=== PATIENT | male | born 1985 ===

== ENCOUNTER 2018-05-10 08:59 | Emergency (ER) | payer OTHER ==
[2018-05-10 09:06] VITALS: BMI 31.0
[2018-05-10 09:11] VITALS: BP 107/73; PULSE 118; RESP 22; TEMP 97.9; O2SAT 96
[2018-05-10] MEDS ORDERED: Oxycodone/Acetaminophen 5/325 mg Tab PO STA (10:22)
--- NOTE | 2018-05-10 10:23 | ED PDOC ---
HPI: Back Chief Complaint (Provider): Back Pain History Per: Patient Additional Complaint(s): 33 yo male, no PMH, presents to ED with c/o lower back pain x 1.5 weeks, progressively worst x3 days. admits to heavy lifting while at work. denies trauma/ injury. hx. reports has diff. ambulating. last advil was last night. No bowel or bladder dysfunction <Camryn Asif - Last Filed: 05/10/18 13:37> <Rafael Diaz III - Last Filed: 05/12/18 13:59> Time Seen by Provider: 05/10/18 09:58 Chief Complaint (Nursing): Back Pain Past Medical History Reviewed: Nursing Documentation, Vital Signs Vital Signs: Last Vital Signs Temp 97.9 F 05/10/18 09:10 Pulse 118 H 05/10/18 09:10 Resp 05/10/18 09:10 BP 107/73 05/10/18 09:10 Pulse Ox 96 05/10/18 09:10 - Medical History PMH: No Chronic Diseases - Surgical History Surgical History: No Surg Hx - Family History Family History: States: No Known Family Hx - Living Arrangements Living Arrangements: With Family - Social History Current smoker - smoking cessation education provided: No Alcohol: None Drugs: Denies <Camryn Asif - Last Filed: 05/10/18 13:37> Vital Signs: Last Vital Signs Temp 97.9 F 05/10/18 09:10 Pulse 118 H 05/10/18 09:10 Resp 05/10/18 09:10 BP 107/73 05/10/18 09:10 Pulse Ox 96 05/10/18 13:44 <Rafael Diaz III - Last Filed: 05/12/18 13:59> - Home Medications Home Medications: Ambulatory Orders Medication Instructions Recorded Cyclobenzaprine [Cyclobenzaprine 10 mg PO TID #20 tab 05/10/18 HCl] Ibuprofen [Motrin] 600 mg PO Q6 #20 tab 05/10/18 oxyCODONE/Acetaminophen [Percocet 1 ea PO Q6 PRN #5 tab 05/10/18 5/325 mg Tab] - Allergies Allergies/Adverse Reactions: Allergies Allergy/AdvReac Type Severity Reaction Status Date / Time No Known Allergies Allergy Verified 05/10/18 09:43 Supervising Attending Note - Attestation: I have reviewed all pertinent clinical information: Yes <Rafael Diaz III - Last Filed: 05/12/18 13:59> Review of Systems ROS Statement: Except As Marked, All Systems Reviewed And Found Negative Musculoskeletal: Positive for: Back Pain <Camryn Asif Last Filed: 05/10/18 13:37> Physical Exam - Reviewed Nursing Documentation Reviewed: Yes Vital Signs Reviewed: Yes - Physical Exam Appears: Positive for: Well, Non-toxic, No Acute Distress Head Exam: Positive for: ATRAUMATIC, NORMAL INSPECTION, NORMOCEPHALIC Skin: Positive for: Normal Color, Warm, DRY Eye Exam: Positive for: EOMI, Normal appearance, PERRL ENT: Positive for: Normal ENT Inspection Neck: Positive for: Normal, Painless ROM Cardiovascular/Chest: Positive for: Regular Rate, Rhythm Respiratory: Positive for: CNT, Normal Breath Sounds Gastrointestinal/Abdominal: Positive for: Normal Exam, Soft Back: Positive for: Normal Inspection Extremity: Positive for: Normal ROM Neurologic/Psych: Positive for: Alert, Oriented <Camryn Asif - Last Filed: 05/10/18 13:37> - ECG O2 Sat by Pulse Oximetry: 96 <Camryn Asif Last Filed: 05/10/18 13:37> Medical Decision Making Medical Decision Making: Pt medicated with Percocet, Motrin and Flexeril on re-eval, reports pain is greatly improved. stable for discharge at this time <Camryn Asif Last Filed: 05/10/18 13:37> Disposition - Patient ED Disposition Is Patient to be Admitted: No - Disposition Disposition: Routine/Home Disposition Time: 13:44 <Camryn Asif - Last Filed: 05/10/18 13:37> <Rafael Diaz III - Last Filed: 05/12/18 13:59> - Clinical Impression Clinical Impression: Back pain - Disposition Referrals: Doc Ramos MD [Primary Care Provider] - Condition: STABLE Prescriptions: Cyclobenzaprine [Cyclobenzaprine HCl] 10 mg PO TID #20 tab Ibuprofen [Motrin] 600 mg PO Q6 #20 tab oxyCODONE/Acetaminophen [Percocet 5/325 mg Tab] 1 ea PO Q6 PRN #5 tab PRN Reason: Pain, Severe (8-10) Instructions: Low Back Pain (DC) Forms: [employer] [facility] ([place]), [place] [facility] School/Work Excuse
== END 2018-05-10 13:35 | disposition home or self-care (01) ==
LOC: SUPCPDRO 08:59 → H.ER 08:59
DX: M54.5 Low back pain (principal)
CPT/HCPCS: 96372; 99283; J1885

== ENCOUNTER 2019-01-05 14:02 | Observation (INO) | payer MEDICAID, OTHER ==
[2019-01-05 14:05] VITALS: BMI 33.7
--- NOTE | 2019-01-05 16:55 | ED PDOC ---
HPI: General Adult Time Seen by Provider: 01/05/19 16:30 Chief Complaint (Nursing): Abnormal Labs Chief Complaint (Provider): Abnormal Labs History Per: Patient History/Exam Limitations: no limitations Onset/Duration Of Symptoms: Other (x1 week) Current Symptoms Are (Timing): Still Present Additional Complaint(s): Patient is a 33 y/o male advised by PCP to come to ED after blood work from one week ago showed acute anemia. Patient reports generalized weakness, fatigue, headache, and intermittent bloody stool. Patient denies abdominal pain, fever, vomiting, and diarrhea. PCP: Dr. Nithin Bagley Past Medical History Reviewed: Historical Data, Nursing Documentation, Vital Signs Vital Signs: Last Vital Signs Temp 98.3 F 01/05/19 14:05 Pulse 64 01/05/19 14:05 Resp 17 01/05/19 14:05 BP 154/82 H 01/05/19 14:05 Pulse Ox 100 01/05/19 14:05 Primary Care Provider: Nithin Bagley - Medical History PMH: No Chronic Diseases - Surgical History Other surgeries: knee - Family History Family History: States: No Known Family Hx - Home Medications Home Medications: Ambulatory Orders Medication Instructions Recorded No Known Home Med 01/05/19 - Allergies Allergies/Adverse Reactions: Allergies Allergy/AdvReac Type Severity Reaction Status Date / Time No Known Allergies Allergy Verified 01/05/19 16:02 Review of Systems ROS Statement: Except As Marked, All Systems Reviewed And Found Negative Constitutional: Positive for: Weakness (generalized), Other (fatigue). Negative for: Fever Gastrointestinal: Positive for: Hematochezia (intermittent). Negative for: Vomiting, Abdominal Pain, Diarrhea Neurological: Positive for: Headache Physical Exam - Reviewed Nursing Documentation Reviewed: Yes Vital Signs Reviewed: Yes - Physical Exam Appears: Positive for: No Acute Distress Head Exam: Positive for: ATRAUMATIC, NORMAL INSPECTION, NORMOCEPHALIC Skin: Positive for: Pallor (generalized) Eye Exam: Positive for: EOMI, Normal appearance, PERRL Neck: Positive for: Normal, Painless ROM, Supple Cardiovascular/Chest: Positive for: Regular Rate, Rhythm. Negative for: Murmur Respiratory: Positive for: Normal Breath Sounds. Negative for: Respiratory Distress Gastrointestinal/Abdominal: Positive for: Normal Exam, Soft. Negative for: Tenderness Back: Positive for: Normal Inspection. Negative for: L CVA Tenderness, R CVA Tenderness Extremity: Positive for: Normal ROM. Negative for: Pedal Edema, Deformity Neurological/Psych: Positive for: Awake, Alert, Oriented (x3) - Laboratory Results Result Diagrams: 01/07/19 05:45 01/06/19 09:30 - ECG O2 Sat by Pulse Oximetry: 100 (RA) Pulse Ox Interpretation: Normal Medical Decision Making Medical Decision Making: Time: 1642 Impression: Generalized Weakness and Bloody Stool Plan: Type and Screen CMP CBC Guiac Stool [Occult Blood, Stool] 19:40 Patient was accepted for admission by Dr. Baltazar for symptomatic anemia. Also placed a GI consult who will see patient on the floor. 20:00 Patient consented for blood transfusion. pt understands risks and benefits of the transfusion but is agreeable. ------- Scribe Attestation: Documented by Caleb Sawyer, acting as a scribe forJudith Peña MD. Provider Scribe Attestation: All medical record entries made by the Scribe were at my direction and personally dictated by me. I have reviewed the chart and agree that the record accurately reflects my personal performance of the history, physical exam, medical decision making, and the department course for this patient. I have also personally directed, reviewed, and agree with the discharge instructions and disposition. Disposition - Clinical Impression Clinical Impression: Symptomatic anemia - Patient ED Disposition Is Patient to be Admitted: Yes Counseled Patient/Family Regarding: Studies Performed, Diagnosis - Disposition Disposition Time: 18:40 Condition: STABLE - Pt Status Changed To: Hospital Disposition Of: Observation
[2019-01-05 17:20] LABS: ALB/GLOB RATIO 1.5 (1.0-2.1); ALBUMIN 4.3 g/dL (3.5-5.0); ALT/SGPT 69 U/L (21-72); AST/SGOT 79 U/L (17-59); BLOOD UREA NITROGEN 16 mg/dl (9-20); CALCIUM 8.8 mg/dL (8.4-10.2); GFR NON-AFRICAN AMERICAN > 60
[2019-01-05 17:26] LABS: BASO # 0.1 K/uL (0.0-0.2); BASO % 1.4 % (0.0-2.0); EOS # 0.2 K/uL (0.0-0.7); EOS % 3.7 % (0.0-4.0); HEMOGLOBIN 7.2 g/dL (12.0-18.0); LYMPH # 1.4 K/uL (1.0-4.3); LYMPH % 29.2 % (20.0-40.0); MEAN CORPUSCULAR HEMOGLOBIN 14.1 pg (27.0-31.0); MEAN CORPUSCULAR HGB CONC 26.4 g/dL (33.0-37.0); MEAN PLATELET VOLUME 10.5 fl (7.2-11.7); MONO # 0.3 K/uL (0.0-0.8); MONO % 6.6 % (0.0-10.0); NEUT # 2.9 K/uL (1.8-7.0); NEUT % 59.1 % (50.0-75.0); NRBC % 0.1 % (0.0-0.0); RBC 5.1 Mil/uL (4.40-5.90); RED CELL DISTRIBUTION WIDTH 22.8 % (11.5-14.5); WHITE BLOOD COUNT 4.9 K/uL (4.8-10.8)
[2019-01-05 18:26] LABS: MEAN CELL VOLUME 53.4 fl (80.0-94.0)
[2019-01-05] MEDS ORDERED: Sodium Chloride 0.9% 1,000 ML IV SCH (21:00)
--- NOTE | 2019-01-05 21:00 | CP.PCM.HP ---
<Pircilla Huitron - Last Filed: 01/05/19 21:07> History of Present Illness - History of Present Illness History of Present Illness: CC: fatigue with rectal bleedin HPI: 33 YO Male with no sig PMHx presents to ED for fatigue. Patient states that for the past 6 months he has had episodic BBPR, small amounts each time and then gets better. For the past two months he has been experiencing increase fatigue and feels tired all the time. He was evaluated by his PMD and on blood work his hemoglobin was found to be low, and was send to ED for further workup. Currently patient does not have any bleeding, denies abdominal pain, n/v, chest pain, dyspnea, weight changes. PMHx: denies SurgHX: L knee arthroscopy for meniscus FHx: denies, no FHx of cancers SHx: denies ETOH, smoking and illicit drug use NKDA No meds at home Full code Present on Admission - Present on Admission Any Indicators Present on Admission: No Review of Systems - Constitutional Constitutional: Other (fatigue ). absent: Chills, Fever - Cardiovascular Cardiovascular: absent: Chest Pain - Respiratory Respiratory: absent: Dyspnea - Gastrointestinal Gastrointestinal: absent: Abdominal Pain - Genitourinary Genitourinary: absent: Dysuria - Neurological Neurological: absent: Dizziness, Weakness Past Patient History - Infectious Disease Hx of Infectious Diseases: None - Past Social History Smoking Status: Never Smoked Alcohol: None Drugs: Denies Home Situation {Lives}: With Family - HEMATOLOGICAL/ONCOLOGICAL Hx Anemia: Yes (acute) - PSYCHIATRIC Hx Substance Use: No - SURGICAL HISTORY Hx Surgeries: Yes Hx Orthopedic Surgery: Yes (left knee) Other/Comment: rt. knee sx. 13 yrs. ago - ANESTHESIA Hx Anesthesia: Yes Meds Allergies/Adverse Reactions: Allergies Allergy/AdvReac Type Severity Reaction Status Date / Time No Known Allergies Allergy Verified 01/05/19 16:02 Physical Exam - Constitutional Appears: No Acute Distress - Head Exam Head Exam: NORMAL INSPECTION - Eye Exam Eye Exam: EOMI, Normal appearance Additional comments: mild conjunctiva pallor - ENT Exam ENT Exam: Mucous Membranes Moist - Respiratory Exam Respiratory Exam: Clear to Auscultation Bilateral, NORMAL BREATHING PATTERN. absent: Wheezes - Cardiovascular Exam Cardiovascular Exam: REGULAR RHYTHM, +S1, +S2 - GI/Abdominal Exam GI & Abdominal Exam: Normal Bowel Sounds, Soft. absent: Tenderness - Extremities Exam Extremities exam: Positive for: normal inspection. Negative for: calf tenderness, pedal edema - Back Exam Back exam: NORMAL INSPECTION - Neurological Exam Neurological exam: Alert, Oriented x3 - Psychiatric Exam Psychiatric exam: Normal Affect, Normal Mood - Skin Skin Exam: Normal Color Results - Vital Signs Recent Vital Signs: Last Vital Signs Temp 97.8 F 01/05/19 18:56 Pulse 60 01/05/19 18:56 Resp 18 01/05/19 18:56 BP 131/82 01/05/19 18:56 Pulse Ox 100 01/05/19 20:08 - Labs Result Diagrams: 01/05/19 17:01 01/05/19 17:01 Labs: Laboratory Results - last 24 hr 01/05/19 01/05/19 01/05/19 17:01 17:01 17:01 WBC 4.9 RBC 5.10 Hgb 7.2 L Hct 27.2 L MCV 53.4 L MCH 14.1 L MCHC 26.4 L RDW 22.8 H Plt Count 81 L MPV 10.5 Neut % (Auto) 59.1 Lymph % (Auto) 29.2 Howell % (Auto) 6.6 Eos % (Auto) 3.7 Baso % (Auto) 1.4 Neut # (Auto) 2.9 Lymph # (Auto) 1.4 Howell # (Auto) 0.3 Eos # (Auto) 0.2 Baso # (Auto) 0.1 Sodium 140 Potassium 4.5 Chloride 108 H Carbon Dioxide 21 L Anion Gap 16 BUN 16 Creatinine 0.8 Est GFR ( Amer) > 60 Est GFR (Non-Af Amer) > 60 Random Glucose 82 Calcium 8.8 Total Bilirubin 0.7 AST 79 H ALT 69 Alkaline Phosphatase 65 Total Protein 7.3 Albumin 4.3 Globulin 3.0 Albumin/Globulin Ratio 1.5 Stool Occult Blood Blood Type O POSITIVE Antibody Screen Negative BBK History Checked No verified bt 01/05/19 18:40 WBC RBC Hgb Hct MCV MCH MCHC RDW Plt Count MPV Neut % (Auto) Lymph % (Auto) Howell % (Auto) Eos % (Auto) Baso % (Auto) Neut # (Auto) Lymph # (Auto) Howell # (Auto) Eos # (Auto) Baso # (Auto) Sodium Potassium Chloride Carbon Dioxide Anion Gap BUN Creatinine Est GFR ( Amer) Est GFR (Non-Af Amer) Random Glucose Calcium Total Bilirubin AST ALT Alkaline Phosphatase Total Protein Albumin Globulin Albumin/Globulin Ratio Stool Occult Blood Negative Blood Type Antibody Screen BBK History Checked Assessment & Plan - Assessment and Plan (Free Text) Assessment: Assessment/Plan: 33 YO Male with no sig PMHx is admitted for symptomatic anemia. Symptomatic anemia -acute on chronic, no acute bleeding -microcytic anemia, likely 2/2 to GI bleed, iron deficiency -likely lower GI given symptoms -will transfuse with 1 unit of PRBC -follow up h/h in AM, FOBT neg now -workup for iron -GI consulted follow up recs -c.w IV fluids, start protonix Thrombocytopenia -likely 2.2 to blood loss -hold DVT prolx for now -follow up AM DVt prolx -anemia with GI bleed and low plts -SCDs for now <John Baltazar - Last Filed: 01/06/19 01:46> Results - Vital Signs Recent Vital Signs: Last Vital Signs Temp 98.2 F 01/06/19 00:52 Pulse 78 01/06/19 00:52 Resp 18 01/06/19 00:52 BP 131/67 01/06/19 00:52 Pulse Ox 97 01/06/19 00:52 - Labs Result Diagrams: 01/05/19 17:01 01/05/19 17:01 Labs: Laboratory Results - last 24 hr 01/05/19 01/05/19 01/05/19 17:01 17:01 17:01 WBC 4.9 RBC 5.10 Hgb 7.2 L Hct 27.2 L MCV 53.4 L MCH 14.1 L MCHC 26.4 L RDW 22.8 H Plt Count 81 L MPV 10.5 Neut % (Auto) 59.1 Lymph % (Auto) 29.2 Howell % (Auto) 6.6 Eos % (Auto) 3.7 Baso % (Auto) 1.4 Neut # (Auto) 2.9 Lymph # (Auto) 1.4 Howell # (Auto) 0.3 Eos # (Auto) 0.2 Baso # (Auto) 0.1 Sodium 140 Potassium 4.5 Chloride 108 H Carbon Dioxide 21 L Anion Gap 16 BUN 16 Creatinine 0.8 Est GFR ( Amer) > 60 Est GFR (Non-Af Amer) > 60 Random Glucose 82 Calcium 8.8 Total Bilirubin 0.7 AST 79 H ALT 69 Alkaline Phosphatase 65 Total Protein 7.3 Albumin 4.3 Globulin 3.0 Albumin/Globulin Ratio 1.5 Stool Occult Blood Blood Type O POSITIVE Blood Type Confirm Antibody Screen Negative Crossmatch See Detail BBK History Checked No verified bt 01/05/19 01/05/19 18:40 22:35 WBC RBC Hgb Hct MCV MCH MCHC RDW Plt Count MPV Neut % (Auto) Lymph % (Auto) Howell % (Auto) Eos % (Auto) Baso % (Auto) Neut # (Auto) Lymph # (Auto) Howell # (Auto) Eos # (Auto) Baso # (Auto) Sodium Potassium Chloride Carbon Dioxide Anion Gap BUN Creatinine Est GFR ( Amer) Est GFR (Non-Af Amer) Random Glucose Calcium Total Bilirubin AST ALT Alkaline Phosphatase Total Protein Albumin Globulin Albumin/Globulin Ratio Stool Occult Blood Negative Blood Type Blood Type Confirm O POSITIVE Antibody Screen Crossmatch BBK History Checked Assessment & Plan - Assessment and Plan (Free Text) Plan: History as documented by resident was reviewed with patient and resident. I performed the wall elements of exam and agree with the above findings. Diagnostics were reviewed and medical decision making and plan of care performed by me.33 yo male with no significant PMH was sent from PMD office to ED for low Hb. He has been having episodes of passing BRBPR over the past few months and gradually started feeling fatigued and dizzy and eventually decided to visit a Dr and was sent to ED. Denies any chest pain, SOB, syncope, palpitation or any other associated symptoms. Other than Hb of 7.2 blood work was also remarkable for Plt count of 81 and AST of 79. Denies heavy alcohol consumption. On exam S1/S2, RRR, lungs clear b/l and abdomen soft, NT/ND without organomegaly. My impression is symptomatic anemia due to blood loss likely from GI track. Agree with PPI, transfusion and GI consult. Plt count of 81 and AST of 79 is concerning for possible EtOH abuse although he denies it and EtOH level is low. Other possibility is hypo-active bone marrow vs consumptional thrombocytopneia. Will monitor Plt count and H&H.
[2019-01-06] MEDS: Pantoprazole 40 mg EC Tab PO SCH (09:11)
[2019-01-06 10:05] LABS: BASO # 0.1 K/uL (0.0-0.2); BASO % 1.5 % (0.0-2.0); EOS # 0.2 K/uL (0.0-0.7); EOS % 3.7 % (0.0-4.0); HEMOGLOBIN 7.3 g/dL (12.0-18.0); LYMPH # 1.9 K/uL (1.0-4.3); LYMPH % 31.2 % (20.0-40.0); MEAN CORPUSCULAR HEMOGLOBIN 16.1 pg (27.0-31.0); MEAN CORPUSCULAR HGB CONC 28.7 g/dL (33.0-37.0); MEAN PLATELET VOLUME 9.8 fl (7.2-11.7); MONO # 0.4 K/uL (0.0-0.8); MONO % 6.5 % (0.0-10.0); NEUT # 3.4 K/uL (1.8-7.0); NEUT % 57.1 % (50.0-75.0); NRBC % 0.1 % (0.0-0.0); RBC 4.52 Mil/uL (4.40-5.90); RED CELL DISTRIBUTION WIDTH 26.3 % (11.5-14.5)
[2019-01-06 10:30] LABS: BLOOD UREA NITROGEN 15 mg/dl (9-20); CALCIUM 8.6 mg/dL (8.4-10.2); GFR NON-AFRICAN AMERICAN > 60
[2019-01-06 10:51] LABS: MEAN CELL VOLUME 56.2 fl (80.0-94.0)
--- NOTE | 2019-01-06 11:54 | CP.PCM.PN ---
<Etta Palacios - Last Filed: 01/06/19 11:55> Subjective - Date & Time of Evaluation Date of Evaluation: 01/06/19 Time of Evaluation: 10:40 - Subjective Subjective: Patient seen and examined at bedside. Denies any complaints. States he had a very small amount of bright red blood per rectum this morning with BM. Reports mild dizziness this morning but denies chest pain, SOB, nausea, vomiting or abdominal pain. Denies drinking alcohol and illicit drug use. No acute events overnight. Hemodynamically stable. Recieving a total of 2 units pRBC today given Hgb of 7 with dizziness on presentation. Objective - Vital Signs/Intake and Output Vital Signs (last 24 hours): Temp Pulse Resp BP Pulse Ox 97.9 F 69 20 128/74 96 01/06/19 07:52 01/06/19 07:52 01/06/19 07:52 01/06/19 07:52 01/06/19 07:52 Intake and Output: 01/06/19 01/06/19 06:59 18:59 Intake Total 333 Balance 333 - Medications Medications: Current Medications Acetaminophen (Tylenol 325mg Tab) 650 mg PO Q6 PRN PRN Reason: Pain, Mild (1-3) Acetaminophen (Tylenol 325mg Tab) 650 mg PO Q6 PRN PRN Reason: Fever >100.4 F Cyanocobalamin (Vitamin B12 1000 Mcg Tab) 1,000 mcg PO DAILY [facility] Folic Acid (Folic Acid) 1 mg PO DAILY [facility] Last Admin: 01/06/19 10:47 Dose: 1 mg Iron Sucrose 100 mg/ Sodium (Chloride) 105 mls @ 105 mls/hr IVPB DAILY [facility] Last Admin: 01/06/19 10:47 Dose: 105 mls/hr Pantoprazole Sodium (Protonix Ec Tab) 40 mg PO DAILY [facility] Last Admin: 01/06/19 09:11 Dose: 40 mg - Labs Labs: 01/06/19 09:30 01/06/19 09:30 - Constitutional Appears: Non-toxic, No Acute Distress - Eye Exam Eye Exam: Normal appearance - ENT Exam ENT Exam: Mucous Membranes Moist - Respiratory Exam Respiratory Exam: Clear to Ausculation Bilateral, NORMAL BREATHING PATTERN. absent: Accessory Muscle Use, Chest Wall Tenderness, Decreased Breath Sounds, Prolonged Expiratory Phase, Rales, Rhonchi, Wheezes, Respiratory Distress, Stridor - Cardiovascular Exam Cardiovascular Exam: REGULAR RHYTHM, +S1, +S2 - GI/Abdominal Exam GI & Abdominal Exam: Soft, Normal Bowel Sounds. absent: Distended, Firm, Guarding, Rigid, Tenderness, Rebound - Extremities Exam Extremities Exam: Normal Capillary Refill, Normal Inspection. absent: Calf Tenderness, Pedal Edema, Tenderness - Neurological Exam Neurological Exam: Alert, Awake, Oriented x3 - Skin Skin Exam: Dry, Intact, Pallor, Warm Assessment and Plan - Assessment and Plan (Free Text) Assessment: 33 yo Male with no medically history admitted for symptomatic anemia. Plan: Symptomatic anemia -acute on chronic, no acute bleeding -microcytic anemia, likely 2/2 to GI bleed, iron deficiency -likely lower GI given symptoms -will transfuse a total of 2 units of PRBC -follow up h/h after 1 unit 7.3/25.4, FOBT neg now -workup for iron -GI consulted follow up recs -c.w IV fluids, start protonix - Follow up H/H after next transfusion Thrombocytopenia -likely 2.2 to blood loss -hold DVT prolx for now -now 108 Mild elevation of AST - no history of alcohol use or drug use - F/U Hepatitis panel DVt prolx -anemia with GI bleed and low plts -SCDs for now <Rebecca Harris - Last Filed: 01/06/19 19:17> Objective - Vital Signs/Intake and Output Vital Signs (last 24 hours): Temp Pulse Resp BP Pulse Ox 97.9 F 67 18 144/82 97 01/06/19 16:01 01/06/19 16:01 01/06/19 16:01 01/06/19 16:01 01/06/19 16:01 Intake and Output: 01/06/19 01/07/19 18:59 06:59 Intake Total 325 Balance 325 - Medications Medications: Current Medications Acetaminophen (Tylenol 325mg Tab) 650 mg PO Q6 PRN PRN Reason: Pain, Mild (1-3) Acetaminophen (Tylenol 325mg Tab) 650 mg PO Q6 PRN PRN Reason: Fever >100.4 F Cyanocobalamin (Vitamin B12 1000 Mcg Tab) 1,000 mcg PO DAILY [facility] Last Admin: 01/06/19 16:47 Dose: 1,000 mcg Folic Acid (Folic Acid) 1 mg PO DAILY [facility] Last Admin: 01/06/19 10:47 Dose: 1 mg Iron Sucrose 100 mg/ Sodium (Chloride) 105 mls @ 105 mls/hr IVPB DAILY [facility] Last Admin: 01/06/19 10:47 Dose: 105 mls/hr Pantoprazole Sodium (Protonix Ec Tab) 40 mg PO DAILY [facility] Last Admin: 01/06/19 09:11 Dose: 40 mg - Labs Labs: 01/06/19 09:30 01/06/19 09:30 PT 13.2 Seconds (9.8-13.1) H 01/06/19 14:50 INR 1.2 01/06/19 14:50 Attending/Attestation - Attestation I have personally seen and examined this patient.: Yes I have fully participated in the care of the patient.: Yes I have reviewed all pertinent clinical information, including history, physical exam and plan: Yes Notes (Text): Anemia symptomatic Chronic Intermittent Rectal Bleed Thrombocytopenia Rpr Hgb after 1 units is only 7.3 Transfuse 1 more unit PRBC Hematology consul;t - discussed case with Dr Grissom HIV Test Hepatitis panel Hemoglobinopathy panel PPI Hemoccult no active rectal bleed - GI work up as outpt
[2019-01-06 15:26] LABS: INR 1.2; PROTHROMBIN TIME 13.2 Seconds (9.8-13.1)
[2019-01-06 15:44] LABS: IRON 157 ug/dL (49-181)
[2019-01-06 15:53] LABS: % IRON SATURATION 32 % (20-55); TOTAL IRON BINDING CAPACITY 489 ug/dL (250-450)
[2019-01-06 21:29] LABS: HEPATITIS B SURFACE AG Negative (NEGATIVE)
[2019-01-06 21:34] LABS: HEPATITIS A IGM NEGATIVE (NEGATIVE); HEPATITIS B CORE AB NEGATIVE (NEGATIVE)
[2019-01-06 21:46] LABS: HEPATITIS C ANTIBODY NEGATIVE (NEGATIVE)
[2019-01-07 07:08] LABS: HEMOGLOBIN 8.2 g/dL (12.0-18.0); MEAN CORPUSCULAR HEMOGLOBIN 17.2 pg (27.0-31.0); MEAN CORPUSCULAR HGB CONC 29.6 g/dL (33.0-37.0); RBC 4.79 Mil/uL (4.40-5.90); RED CELL DISTRIBUTION WIDTH 30.8 % (11.5-14.5); WHITE BLOOD COUNT 6.1 K/uL (4.8-10.8)
[2019-01-07 07:38] LABS: MCH 15.8 pg (27.0-33.0)
[2019-01-07 08:11] VITALS: BP 134/70; PULSE 65; RESP 20; TEMP 97.6
[2019-01-07] MEDS: Pantoprazole 40 mg EC Tab PO SCH (09:09)
--- NOTE | 2019-01-07 10:58 | CP.PCM.DIS ---
Provider - Provider Date of Admission: 01/05/19 19:38 Attending physician: John Baltazar MD Consults: 01/05/19 19:39 Gastroenterology Consult Routine Comment: Consulting Provider: Rafael Richter Consulting Physician: Rafael Richter Reason for Consult: rectal bleed 01/06/19 16:08 Hematology Oncology Consult Routine Comment: Consulting Provider: Kenyon Grissom Consulting Physician: Kenyon Grissom Reason for Consult: Low MCV; symptomatic anemia Time Spent in preparation of Discharge (in minutes): 30 Diagnosis - Discharge Diagnosis (1) Symptomatic anemia Status: Acute Comment: Likely secondary to hemorrhoids. recieved 2 units of pRBC- repeat H/H: 8.2/27.8. FOBT negative. Given protonix during hospital stay. Will follow up with PMD, Dr. Bagley and Dr. Delgado outpatient GI. Hospital Course - Lab Results Lab Results: Most Recent Lab Values WBC 6.1 K/uL (4.8-10.8) 01/07/19 05:45 RBC 4.79 Mil/uL (4.40-5.90) 01/07/19 05:45 Hgb 8.2 g/dL (12.0-18.0) L 01/07/19 05:45 Hct 27.8 % (35.0-51.0) L 01/07/19 05:45 MCV 58.0 fl (80.0-94.0) L 01/07/19 05:45 MCH 17.2 pg (27.0-31.0) L 01/07/19 05:45 MCHC 29.6 g/dL (33.0-37.0) L 01/07/19 05:45 RDW 30.8 % (11.5-14.5) H 01/07/19 05:45 Plt Count 73 K/uL (130-400) L D 01/07/19 05:45 MPV 9.8 fl (7.2-11.7) 01/06/19 09:30 Neut % (Auto) 57.1 % (50.0-75.0) 01/06/19 09:30 Lymph % (Auto) 31.2 % (20.0-40.0) 01/06/19 09:30 [place] % (Auto) 6.5 % (0.0-10.0) 01/06/19 09:30 Eos % (Auto) 3.7 % (0.0-4.0) 01/06/19 09:30 Baso % (Auto) 1.5 % (0.0-2.0) 01/06/19 09:30 Neut # (Auto) 3.4 K/uL (1.8-7.0) 01/06/19 09:30 Lymph # (Auto) 1.9 K/uL (1.0-4.3) 01/06/19 09:30 [place] # (Auto) 0.4 K/uL (0.0-0.8) 01/06/19 09:30 Eos # (Auto) 0.2 K/uL (0.0-0.7) 01/06/19 09:30 Baso # (Auto) 0.1 K/uL (0.0-0.2) 01/06/19 09:30 Hemoglobinopathy Red Blood Count 4.55 Million/uL (4.20-5.80) 01/06/19 19:00 Hemoglobinopathy Hct 27.1 % (38.5-50.0) L 01/06/19 19:00 Hemoglobinopathy Hgb 7.2 g/dL (13.2-17.1) L 01/06/19 19:00 Hemoglobinopathy MCH 15.8 pg (27.0-33.0) L 01/06/19 19:00 PT 13.2 Seconds (9.8-13.1) H 01/06/19 14:50 INR 1.2 01/06/19 14:50 Sodium 140 mmol/l (132-148) 01/06/19 09:30 Potassium 4.0 MMOL/L (3.6-5.0) 01/06/19 09:30 Chloride 107 mmol/L (98-107) 01/06/19 09:30 Carbon Dioxide 24 mmol/L (22-30) 01/06/19 09:30 Anion Gap 13 (10-20) 01/06/19 09:30 BUN 15 mg/dl (9-20) 01/06/19 09:30 Creatinine 0.9 mg/dl (0.8-1.5) 01/06/19 09:30 Est GFR ( Amer) > 60 01/06/19 09:30 Est GFR (Non-Af Amer) > 60 01/06/19 09:30 Random Glucose 93 mg/dL (75-110) 01/06/19 09:30 Calcium 8.6 mg/dL (8.4-10.2) 01/06/19 09:30 Iron 157 ug/dL (49-181) 01/06/19 15:20 TIBC 489 ug/dL (250-450) H 01/06/19 15:20 % Saturation 32 % (20-55) 01/06/19 15:20 Ferritin 9.0 ng/Ml (17.9-464) L 01/06/19 11:00 Total Bilirubin 0.7 mg/dl (0.2-1.3) 01/05/19 17:01 AST 79 U/L (17-59) H 01/05/19 17:01 ALT 69 U/L (21-72) 01/05/19 17:01 Alkaline Phosphatase 65 U/L (38-126) 01/05/19 17:01 Total Protein 7.3 G/DL (6.3-8.2) 01/05/19 17:01 Albumin 4.3 g/dL (3.5-5.0) 01/05/19 17:01 Globulin 3.0 gm/dL (2.2-3.9) 01/05/19 17:01 Albumin/Globulin Ratio 1.5 (1.0-2.1) 01/05/19 17:01 Vitamin B12 605 pg/mL (239-931) 01/07/19 05:45 Stool Occult Blood Negative (NEGATIVE) 01/05/19 18:40 Hepatitis A IgM Ab Negative (NEGATIVE) 01/06/19 14:50 Hep Bs Antigen Negative (NEGATIVE) 01/06/19 14:50 Hep Bs Antibody Negative (NEGATIVE) 01/06/19 14:50 Hep B Core IgM Ab Negative (NEGATIVE) 01/06/19 14:50 Hepatitis C Antibody Negative (NEGATIVE) 01/06/19 14:50 HIV 1&2 Antibody Screen Negative (NEGATIVE) 01/06/19 14:50 Blood Type O POSITIVE 01/05/19 17:01 Blood Type Confirm O POSITIVE 01/05/19 22:35 Antibody Screen Negative 01/05/19 17:01 Crossmatch See Detail 01/05/19 17:01 BBK History Checked No verified bt 01/05/19 17:01 - Hospital Course Hospital Course: 33 yo Male with no medically history admitted for symptomatic anemia secondary to lower GI bleed, possible hemorrhoids given history of chronic bright red blood per rectum. GI was consulted and Hem/onc given thrombocytopenia and microcytic anemia with MCV in the 50's. H/H now stable after recieving 2 units of pRBC's. Patient will follow up outpatient with GI, hem/onc and with his PMD. Discharge Exam - Head Exam Head Exam: NORMAL INSPECTION - Eye Exam Eye Exam: Normal appearance - ENT Exam ENT Exam: Mucous Membranes Moist - Respiratory Exam Respiratory Exam: Clear to PA & Lateral, NORMAL BREATHING PATTERN, UNREMARKABLE. absent: Accessory Muscle Use, Chest Wall Tenderness, Decreased Breath Sounds, Prolonged Expiratory Phase, Rales, Rhonchi, Wheezes, Respiratory Distress, Stridor - GI/Abdominal Exam GI & Abdominal Exam: Normal Bowel Sounds, Soft, Unremarkable. absent: Distended, Firm, Guarding, Hernia, Rebound, Rigid, Tenderness - Extremities Exam Extremities exam: full ROM, normal capillary refill, normal inspection, pedal pulses present - Neurological Exam Neurological exam: Alert, Oriented x3 - Psychiatric Exam Psychiatric exam: Normal Affect, Normal Mood - Skin Skin Exam: Dry, Intact, Normal Color, Warm Discharge Plan - Follow Up Plan Condition: GOOD Disposition: HOME/ ROUTINE Patient education suggested?: Yes Instructions: Blood Transfusion , Normocytic Normochromic Anemia (DC) Additional Instructions: hacer ivan con bass doctor primario dentro de 1 semana Referrals: Kenyon Grissom MD [Staff Provider] - Rafael Richter MD, PhD [Staff Provider] - Nithin Bagley MD [Staff Provider] -
[2019-01-07 11:54] LABS: MCV 59.6 fL (80.0-100.0)
[2019-01-07 18:00] LABS: FOLATE 13.6 ng/mL
--- NOTE | 2019-01-08 10:04 | CON ---
DATE: 01/06/2019 REFERRING DOCTOR: REASON FOR CONSULTATION: Rectal bleeding. HISTORY OF PRESENT ILLNESS: This is a pleasant 33-year-old man with episodic blood in the stool for the past month or two. He has been constipated at work, found to have low hemoglobin and sent to the ER. He has some rectal bleeding but no discomfort, no abdominal pain. Currently lying in the bed comfortably in no apparent distress. PAST MEDICAL HISTORY: As above. PAST SURGICAL HISTORY: As above. MEDICATIONS: Reviewed. REVIEW OF SYSTEMS: All other systems have been reviewed and negative apart from the HPI. PHYSICAL EXAMINATION: VITAL SIGNS: Here in the hospital are grossly unremarkable. GENERAL: This is a well-nourished, pleasant middle-age man, lying in bed comfortable, in no apparent distress. HEENT: Head is normocephalic and atraumatic. Eyes: Pupils are equally reactive to light bilaterally. No conjunctival pallor or icterus. NECK: Supple. Normal range of motion. No lymphadenopathy appreciated. LUNGS: Coarse breath sounds bilaterally. HEART: S1 and S2. Regular rate and rhythm. No murmurs appreciated. ABDOMEN: Soft, nontender. Bowel sounds present. No rebound. No guarding. RECTAL: Deferred. EXTREMITIES: Pulses felt bilaterally. SKIN: Warm, dry, and intact. NEUROLOGIC: A and O x3. LABORATORY DATA: Labs and radiology have been reviewed. WBC is 6.1, hemoglobin 8.2, after transfusion , platelet count is 73. INR is 1.2. ASSESSMENT AND PLAN: This is a 33-year-old man with thrombocytopenia and rectal bleeding. Surgical evaluation is appreciated. For thrombocytopenia, would consider hematology evaluation. We will follow the patient with you. May need a colonoscopy ultimately at some point which could be done as an outpatient. Thank you for the consult. Rafael Richter MD/ PhD cc:
[2019-01-08 19:00] LABS: HEMOGLOBIN A 97.1 Percent (>96.0); HEMOGLOBIN A2 1.9 Percent (1.8-3.5)
[2019-01-09 21:46] VITALS: O2SAT 100
== END 2019-01-07 13:29 | disposition home or self-care (01) ==
LOC: H.ER 14:02 → H.ERHOLD 19:38 → H.MEDSURG1 21:00
PROVIDERS: ADMIT Internal Medicine; ATTEND Internal Medicine
DX: K64.8 Other hemorrhoids (principal); D50.0 Iron deficiency anemia secondary to blood loss (chronic); D69.59 Other secondary thrombocytopenia; K59.00 Constipation, unspecified
CPT/HCPCS: 36415; 36430; 80048; 80053; 82607; 82728; 82746; 83021; 83540; 83550; 85014; 85018; 85025; 85027; 85041; 85610; 86703; 86705; 86706; 86709; 86803; 86850; 86900; 86920; 87340; 96365; 96366; 99285; G0328; G0378; J1756; J7030; P9051